=== PATIENT | male | born 1985 | race Caucasian/White ===

== ENCOUNTER → 2017-03-10 | Outpatient (CLI) | payer OTHER | END | disposition home or self-care (01) | LOC: MRI 08:41 | DX: S13.4XXA Sprain of ligaments of cervical spine, initial encounter (principal); S23.3XXA Sprain of ligaments of thoracic spine, initial encounter; S33.5XXA Sprain of ligaments of lumbar spine, initial encounter; M50.20 Other cervical disc displacement, unspecified cervical region; X58.XXXA Exposure to other specified factors, initial encounter; Y93.89 Activity, other specified; Y92.89 Other specified places as the place of occurrence of the external cause; Y99.8 Other external cause status ==

== ENCOUNTER → 2018-06-10 | Outpatient (CLI) | payer BC ==
[2018-06-10 14:36] LABS: HEMATOCRIT 42.6 % (42.0-52.0); HEMOGLOBIN 13.9 g/dl (14.0-18.0); MEAN CELL VOLUME 87.5 fl (80.0-94.0); MEAN CORPUSCULAR HGB 28.5 pg (27.0-31.0); MEAN CORPUSCULAR HGB CONC 32.6 g/dl (33.0-37.0); MEAN PLATELET VOLUME 9.4 fl (9.6-12.3); RED BLOOD COUNT 4.87 10*6/uL (4.50-5.90); WHITE BLOOD COUNT 10.2 10*3/uL (4.8-10.8)
[2018-06-10 15:08] LABS: ALBUMIN 3.9 gm/dl (3.1-4.5); ALKALINE PHOSPHATASE 127 U/L (45-117); BUN 12 mg/dl (7-24); CHLORIDE 106 mmol/L (98-107); CHOLESTEROL 181 mg/dL (<200); CREATININE 0.92 mg/dL (0.70-1.30); FREE T4 0.98 ng/dl (0.76-1.46); HDL CHOLESTEROL 45 mg/dl (40-60); LDL CHOLESTEROL 118 mg/dL (9-159); POTASSIUM 4.3 mmol/L (3.5-5.1); SGOT/AST 17 IU/L (3-35); SGPT/ALT 25 U/L (12-78); SODIUM 139 mmol/L (136-145); TOTAL PROTEIN 8.9 gm/dL (6.4-8.2); TRIGLYCERIDES 91 mg/dl (<150); VLDL CHOLESTEROL 18 mg/dL (6-40)
[2018-06-10 15:41] LABS: VITAMIN D, 25-HYDROXY 17.4 ng/mL (30-100)
[2018-06-11 08:13] LABS: RHEUMATOID ARTHRITIS FACTOR <10.0 IU/mL (0.0-13.9)
== END | disposition home or self-care (01) ==
LOC: LAB 14:19
PROVIDERS: Family Medicine
DX: E78.00 Pure hypercholesterolemia, unspecified (principal); E55.9 Vitamin D deficiency, unspecified; R10.11 Right upper quadrant pain; R63.4 Abnormal weight loss

== ENCOUNTER → 2018-06-24 | Outpatient (CLI) | payer BC ==
[2018-06-25 05:07] LABS: TOTAL PROTEIN, SERUM 7.3 g/dL (6.0-8.5)
[2018-06-25 14:06] LABS: ALBUMIN 3.6 g/dL (2.9-4.4); ALPHA-1-GLOBULIN 0.3 g/dL (0.0-0.4); BETA GLOBULIN 1.1 g/dL (0.7-1.3); GAMMA GLOBULIN 1.3 g/dL (0.4-1.8); GLOBULIN, TOTAL 3.7 g/dL (2.2-3.9); M-SPIKE Not Observed g/dL (Not Observed)
[2018-06-26 08:13] LABS: TESTOSTERONE FREE, (DIRECT) 2.7 pg/mL (8.7-25.1)
[2018-06-29 13:10] LABS: HLA-B27 ANTIGEN Positive (.)
[2018-06-29 15:06] LABS: ALBUMIN, URINE 36.7 % (.); ALPHA-1-GLOBULIN, URINE 6.7 % (.); ALPHA-2-GLOBULIN, URINE 19.7 % (.); BETA GLOBULIN, URINE 23.5 % (.); GAMMA GLOBULIN, URINE 13.4 % (.); M-SPIKE, % Not Observed % (Not Observed); PROTEIN,TOTAL - URINE RANDOM 11.5 mg/dL (Not Estab.)
== END | disposition home or self-care (01) ==
LOC: LAB 16:29
PROVIDERS: Family Medicine
DX: E87.0 Hyperosmolality and hypernatremia (principal); M54.5 Low back pain; R53.83 Other fatigue

== ENCOUNTER → 2018-06-25 | Outpatient (CLI) | payer BC | END | disposition home or self-care (01) | LOC: CT 17:00 | DX: R10.11 Right upper quadrant pain (principal) ==